=== PATIENT | male | born 2000 | race Caucasian/White ===

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

== ENCOUNTER → 2023-02-18 | Outpatient (CLI) | payer OTHER, SELFPAY ==
--- NOTE | 2023-02-18 09:03 | BI_ITS ---
MAMMOGRAPHY - BILATERAL DIAGNOSTIC REASON FOR EXAM: Male, 22 years old. Gynecomastia. PERTINENT HISTORY: Grandmother with breast cancer. TECHNIQUE: Digital bilateral breast deann (3D mammographic acquisition) in the CC and MLO projections. 2-D mediolateral oblique (MLO) and craniocaudad (CC) views of both breasts were obtained. CAD: Full Field Digital Mammography with Computer Added Detection was performed. COMPARISON: None. Baseline examination. FINDINGS: Breast Composition: There are scattered areas of fibroglandular density. There are no dominant masses or suspicious calcifications. No other significant abnormalities are identified. BI/DIAG MAMM W/CAD, BILAT IMPRESSION: Findings suggestive of gynecomastia. ASSESSMENT CATEGORY: BIRADS Category 2: Benign. A letter regarding these results will be sent to the patient by the facility within 30 days. Approximately 10% of breast cancers are not detected by mammography. A normal mammogram should not delay biopsy of a clinically suspicious abnormality. Electronically Signed: Desmond Mitchell MD at 12:58 EDT ,
== END | disposition home or self-care (01) ==
PROVIDERS: PCP Family Medicine; Referring Provider Surgery; Visit Provider Surgery
DX: N63.21 Unspecified lump in the left breast, upper outer quadrant (principal); N63.11 Unspecified lump in the right breast, upper outer quadrant; N64.89 Other specified disorders of breast; N62 Hypertrophy of breast
CPT/HCPCS: 77062; 77066; G0279

== ENCOUNTER → 2023-03-08 | Outpatient (CLI) | payer OTHER, SELFPAY ==
[2023-03-08 17:45] LABS: Absolute Lymphocyte Count 1.66 X10^3/uL (0.83-4.51); Absolute Neutrophil Count 1.4 X10^3/uL (2.0-7.7); Basophil# 0.04 X10^3/uL; Basophil% 1.1 % (0-1); Eosinophil# 0.23 X10^3/uL; Eosinophils% 6.3 % (0-5); Hematocrit 45.7 % (40-54); Hemoglobin 15.3 g/dL (13.0-16.5); Lymphocyte # 1.66 X10^3/ul (0.83-4.51); Lymphocyte % 45.2 % (19-41); Mean Corp Hgb Conc 33.5 g/dL (32-36); Mean Corpuscular Hgb 31.2 pg (27.0-32.0); Mean Corpuscular Volume 93.1 fL (80-94); Mean Platelet Vol. 9.8 fl (6.2-12.0); Monocyte% 8.2 % (0-10); NRBC Flagged by Analyzer 0 % (0-5); Neutrophil # 1.43 X10^3/uL (2.7-7.7); Neutrophil % 38.9 % (47-70); Platelet Count 293 K/mm3 (150-450); RBC Distribution Width CV 11.4 % (11.6-14.6); Red Blood Count 4.91 M/mm3 (4.6-6.2); White Blood Count 3.7 K/mm3 (4.4-11.0)
[2023-03-08 18:32] LABS: ALB/GLOB Ratio 1.1 RATIO (0.9-2.4); AST(SGOT) 15 U/L (15-37); Alanine Aminotransfer ALT/SGPT 23 U/L (16-61); Albumin, Serum 4.2 g/dL (3.2-5.0); Alkaline Phosphatase 64 U/L (45-117); Anion Gap 5 (5-15); BUN 19 mg/dL (7-18); BUN/Creat Ratio 17.1 RATIO (10-20); Calcium,Total 9.1 mg/dL (8.5-10.1); Chloride 106 mmol/L (98-107); Creatinine, Serum 1.11 mg/dL (0.70-1.30); EST Glomerular Filtration Rate 90 mL/min (>60); Est Glom Filt Rate - Afr Amer 108 mL/min (>60); Ferritin 72 ng/mL (26-388); Globulin 3.7 g/dL (2.2-4.2); Glucose 89 mg/dL (74-106); Iron 58 ug/dL (65-175); Iron Binding Capacity,Total 319 ug/dL (250-450); Potassium 3.7 mmol/L (3.5-5.1); Protein, Total 7.9 g/dL (6.4-8.2); Sodium Level 138 mmol/L (136-145); T4 Free Direct 0.94 ng/dL (0.76-1.46); Thyroid Stim Hormone (TSH) 3.63 uIU/mL (0.358-3.74)
[2023-03-08 18:34] LABS: Vitamin B12 507 pg/mL (211-911); Vitamin D,25 Hydroxy 40.4 ng/mL
[2023-03-08 18:34] LABS: hCG Titer Quant., Serum < 1 mIU/mL (0-1 male)
[2023-03-08 19:29] LABS: Estradiol 24.8 pg/mL; Follicle Stimulating Hormone 5.5 mIU/mL; Luteinizing Hormone 5.3 mIU/mL; Prolactin 13.8 ng/mL; T4 Free Direct 0.92 ng/dL (0.76-1.46); Thyroid Stim Hormone (TSH) 3.58 uIU/mL (0.358-3.74)
[2023-03-16 04:07] LABS: 17-Hydroxyprogesterone 71 ng/dL (27-199)
[2023-03-18 11:09] LABS: Adrenocorticotropic Hormone 13.9 pg/mL (7.2-63.3); Androstenedione 75 ng/dL (27-152); Sex Hormone-binding Globulin 27.9 nmol/L (16.5-55.9); Testosterone Free 10.9 pg/mL (9.3-26.5)
== END | disposition home or self-care (01) ==
LOC: MTLAB 15:02
PROVIDERS: Surgery; PCP Family Medicine; Referring Provider Family Medicine; Visit Provider Family Medicine
DX: R53.83 Other fatigue (principal); E61.1 Iron deficiency; N62 Hypertrophy of breast
CPT/HCPCS: 36415; 80053; 82024; 82157; 82306; 82607; 82627; 82670; 82728; 83001; 83002; 83498; 83540; 83550; 84146; 84270; 84402; 84439; 84443; 84702; 85025; 82626

== ENCOUNTER → 2023-06-07 | Outpatient (CLI) | payer OTHER, SELFPAY ==
[2023-06-22 18:07] LABS: Testosterone, % Free 2.82 % (1.50-4.20); Testosterone, Total 663 ng/dL (264-916)
== END | disposition home or self-care (01) ==
LOC: MFPLAB 11:32
PROVIDERS: PCP Family Medicine; Visit Provider Family Medicine
DX: R68.82 Decreased libido (principal)
CPT/HCPCS: 36415; 84402; 84403

== ENCOUNTER → 2023-06-14 | Outpatient (CLI) | payer OTHER, SELFPAY | END | disposition home or self-care (01) | LOC: SL 08:48 | PROVIDERS: PCP Family Medicine; Referring Provider Nurse Practitioner Acute Care; Visit Provider Nurse Practitioner Acute Care | DX: G47.10 Hypersomnia, unspecified (principal) | CPT/HCPCS: 95806 ==

== ENCOUNTER → 2023-07-12 | Outpatient (CLI) | payer OTHER, SELFPAY ==
--- OUTSIDE RECORDS SUMMARY | 2023-07-12 20:24 | XMS RPT_ITS | CCD ---
Author Name Unknown Address [address] [place] [address] Organization [facility] Care Team Providers Care Registered Representative Name Role Phone Dwight Rodriguez MD Primary Care Provider DAVID LANDEROS Primary Care Unavailable DAVID LANDEROS Attending Unavailable DWIGHT RODRIGUEZ Primary Care Unavailable DAVID LANDEROS Referring Unavailable DWIGHT RODRIGUEZ Primary Care Unavailable DAVID LANDEROS Attending Unavailable Allergies Allergy Classification Reported Allergen(s) Allergy Type Date of Onset Reaction(s) Facility (2 sources) Seasonal allergy; Translations: [SEASONAL ALLERGIES] Propensity to adverse reactions 02-28-2010 [facility] Medications Completed/Discontinued Medications Medication Drug Class(es) Dates Sig (Normalized) Sig (Original) ASHWAGANDHA ROOT EXTRACT,BULK, MISC (1 source) ASHWAGANDHA ROOT EXTRACT,BULK, MISC 1 Dose once daily. 0 Active Problems Active Problems Problem Classification Problem Date Documented Date Episodic/Chronic Esophageal disorders (1 source) Gastroesophageal reflux disease; Translations: [Gastro-esophageal reflux disease without esophagitis] Onset: 11-21-2012 11-21-2012 Chronic Immunizations and screening for infectious disease (3 sources) Encounter for immunization; Translations: [Encounter for screening for other viral diseases] Onset: 11-16-2022 Episodic Past or Other Problems Problem Classification Problem Date Documented Da te Episodic/Chronic Abdominal pain (1 source) Epigastric pain; Translations: [Epigastric pain] Onset: 07-07-2012 07-07-2012 Episodic Other gastrointestinal disorders (1 source) Diarrhea; Translations: [Diarrhea, unspecified] Onset: 12-07-2003 12-07-2003 Episodic Other injuries and conditions due to external causes (1 source) Excoriation of skin; Translations: [Other injury of unspecified body region, initial encounter] Onset: 09-02-2013 09-02-2013 Episodic Other skin disorders (1 source) Keratosis pilaris; Translations: [Other specified epidermal thickening] Onset: 02-17-2012 02-17-2012 Episodic Other skin disorders (1 source) Comedonal acne; Translations: [Acne vulgaris] Onset: 02-17-2012 05-19-2012 Episodic Other skin disorders (1 source) Milia; Translations: [Epidermal cyst] Onset: 09-02-2013 09-02-2013 Episodic Other skin disorders (1 source) Acne; Translations: [Other acne] Onset: 09-02-2013 09-02-2013 Episodic Results Test Name Value Interpretation Reference Range Facil ity Encounters Encounter Date Encounter Type Care Provider Facility Start: 11-30-2022 End: 12-01-2022 ambulatory DAVID LANDEROS Facility:[facility] Start: 11-16-2022 End: 11-17-2022 ambulatory DWIGHT RODRIGUEZ Facility:[facility] Start: 11-16-2022 Encounter for routin e child health examination without abnormal findings DAVID LANDEROS [facility] Start: 11-01-2021 ambulatory Dwight gomes MD Work Phone: [facility] Procedures Date Procedure Procedure Detail Performing Clinician Start: 07-04-2021 Adult depression screening assessment Dwight Rodriguez MD Work Phone: Plan of Treatment Date Care Activity Detail Author Start: 03-14-2026 Urine microalbumin profile DTA P,TDAP,TD (7 - Td or Tdap) [facility] Start: 07-04-2022 Adult depression scr eening assessment DEPRESSION SCREENING [facility] Start: 02-22-2022 Influenza vaccination INFLUENZA (Sea son Ended) [facility] Start: 2020 HEPATITIS C SCREENING HEPATITIS C [facility] Start: 2020 HIV SCREENING HIV SCREENING [facility] Start: 2018 MENINGOCOCCAL CONJUG ATE (2 - 2-dose series) MENINGOCOCCAL CONJUGATE (2 - 2-dose series) [facility] Start: 2016 PEDS TO ADULT TRANSI TION ANNUAL ASSESSMENT PEDS TO ADULT TRANSITION ANNUAL ASSESSMENT [facility] Start: 2014 PEDS TO ADULT TRANSI TION INITIAL DISCUSSION PEDS TO ADULT TRANSITION INITIAL DISCUSSION [facility] Start: 2013 HPV VACCINE (1 - Mal e 2-dose series) HPV VACCINE (1 - Male 2-dose series) [facility] Start: 2012 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 (1 of 2 - Risk Bexsero 2-dose series) MENINGOCOCCAL B: Consider based on risk (1 of 2 - Risk Bexsero 2-dose series) [facility] Start: 11-24-2007 COVID-19 VACCINE (#1) COVID-19 VACCI NE (#1) [facility] Immunizations Immunization Date Immunization Notes Care Provider Fa cility 03-14-2016 meningococcal polysaccharide (groups A, C, Y and W-135) diphtheria toxoid conjugate vaccine (MCV4P) Dwight Rodriguez MD Work Phone: [facility] 03-14-2016 tetanus toxoid, redu layla diphtheria toxoid, and acellular pertussis vaccine, adsorbed Dwight Rodriguez MD Work Phone: [facility] 03-14-2009 Diphtheria, tetanus toxoids and acellular pertussis vaccine, and poliovirus vaccine, inactivated Dwight Rodriguez MD Work Phone: [facility] Work Phone: 03-14-2009 hepatitis A vaccine, unspecified formulation Dwight Rodriguez MD Work Phone: [facility] Work Phone: 03-14-2009 measles, mumps and rubella virus vaccine Dwight Rodriguez MD Work Phone: [facility] Work Phone: 03-14-2009 varicella virus vaccine Eran Rodriguez MD Work Phone: [facility] Work Phone: 01-17-2007 hepatitis A vaccine, unspecified formulation Dwight Rodriguez MD Work Phone: [facility] Work Phone: 05-26-2004 diphtheria, tetanus toxoids and acellular pertussis vaccine Dwight Rodriguez MD Work Phone: [facility] Work Phone: 05-26-2004 haemophilus influenz ae type b vaccine, HbOC conjugate Dwight Rodriguez MD Work Phone: [facility] Work Phone: 05-15-2004 influenza virus vacc ine, unspecified formulation Dwight Rodriguez MD Work Phone: [facility] Work Phone: 03-24-2004 influenza virus vacc ine, unspecified formulation Dwight Rodriguez MD Work Phone: [facility] Work Phone: 02-24-2004 hepatitis B vaccine, pediatric or pediatric/adolescent dosage Dwight Rodriguez MD Work Phone: [facility] Work Phone: 02-24-2004 measles, mumps and rubella virus vaccine Dwight Rodriguez MD Work Phone: [facility] Work Phone: 02-24-2004 pneumococcal polysaccharide vaccine, 23 valent Dwight Rodriguez MD Work Phone: [facility] Work Phone: 02-24-2004 varicella virus vaccine Eran Rodriguez MD Work Phone: [facility] Work Phone: 06-03-2003 diphtheria, tetanus toxoids and acellular pertussis vaccine Dwight Rodriguez MD Work Phone: [facility] Work Phone: 06-03-2003 haemophilus influenz ae type b vaccine, HbOC conjugate Dwight Rodriguez MD Work Phone: [facility] Work Phone: 06-03-2003 pneumococcal polysaccharide vaccine, 23 valent Dwight Rodriguez MD Work Phone: [facility] Work Phone: 06-03-2003 poliovirus vaccine, inactivated Dwight Rodriguez MD Work Phone: [facility] Work Phone: 04-13-2003 diphtheria, tetanus toxoids and acellular pertussis vaccine Dwight Rodriguez MD Work Phone: [facility] Work Phone: 04-13-2003 haemophilus influenz ae type b vaccine, HbOC conjugate Dwight Rodriguez MD Work Phone: [facility] Work Phone: 04-13-2003 pneumococcal polysaccharide vaccine, 23 valent Dwight Rodriguez MD Work Phone: [facility] Work Phone: 04-13-2003 poliovirus vaccine, inactivated Dwight Rodriguez MD Work Phone: [facility] Work Phone: 02-09-2003 diphtheria, tetanus toxoids and acellular pertussis vaccine Dwight Rodriguez MD Work Phone: [facility] Work Phone: 02-09-2003 haemophilus influenz ae type b vaccine, HbOC conjugate Dwight Rodriguez MD Work Phone: [facility] Work Phone: 02-09-2003 pneumococcal polysaccharide vaccine, 23 valent Dwight Rodriguez MD Work Phone: [facility] Work Phone: 02-09-2003 poliovirus vaccine, inactivated Dwight Rodriguez MD Work Phone: [facility] Work Phone: 2002 hepatitis B vaccine, pediatric or pediatric/adolescent dosage Dwight Rodriguez MD Work Phone: [facility] Work Phone: 2002 hepatitis B vaccine, pediatric or pediatric/adolescent dosage Dwight Rodriguez MD Work Phone: [facility] Work Phone: Payers Date Payer Category Payer Private Health Insurance [id number] 2018 Unknown [employer] PPO [id number] 2018-Present [phone] [address] [place] [address] PPO 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 Author Type: Physician Type: Progress Notes Filed: 11/17/2022 8:17 AM Note Text: WELL VISIT PEDIATRIC 18+YRS OLD Khris is a 21 year old who presents today for well exam. SUBJECTIVE CONCERNS: no concerns HISTORY ACTIVE PROBLEM LIST Milial Cyst - 09/02/2013 Other Acne - 09/02/2013 Excoriation - 09/02/2013 Gerd (Gastroesophageal Reflux Disease) - 11/21/2012 Pain, Abdominal, Epigastric - 07/07/2012 Keratosis Pilaris - 02/17/2012 Comedonal Acne - 02/17/2012 Diarrhea - 12/07/2003 PAST MEDICAL HISTORY Diagnosis Date Comedonal acne 02/17/2012 DIARRHEA NOS 12/07/2003 Keratosis pilaris 02/17/2012 PAST SURGICAL HISTORY Procedure Laterality Date PAST SURGICAL HISTORY OF 2002 circumcision ALLERGIES Allergen Reactions Seasonal Allergies Medications: ASHWAGANDHA ROOT EXTRACT,BULK, MISC 1 Dose once daily. (Patient not taking: Reported on 11/02/2021 ) creatine, bulk, 100 % powd 1 Dose two times a week. (Patient not taking: Reported on 11/16/2022) CLARAVIS 40 mg capsule TAKE ONE PILL ONCE DAILY WITH FATTY FOODS *PHONE BUSY MD/PT NEEDS TO DO REMS* (Patient not taking: Reported on 11/16/2022) mupirocin (BACTROBAN) 2 % ointment Apply 1 application to affected area three times daily. Location: to ear (Patient not taking: Reported on 04/30/2018 ) Benzoyl Peroxide 10 % external wash Apply 1 application to affected area twice daily. (Patient not taking: Reported on 04/30/2018 ) FAMILY HISTORY Problem Relation Age of Onset Hypertension Maternal Grandmother Hypertension Unknown [place] at 81 years of age; - mggf other (lung cancer [Other]) Maternal Grandmother other (familial progressive paralysis [Other]) Paternal Grandmother Social History Social History Narrative Not on file Smoking Exposure: Do you spend a significant amount of time with anyone who smokes? No School: Presently in [employer]. No academic or school related concerns No behavioral concerns Any concerns regarding peer interactions? No Physical Activity: more than 1 hour of physical activity per day Screen Time totaling more than 2 hours of screen time per day. Safety: Reviewed seat belts, smoke detectors, and driving Diet: -Diet is well balanced and appropriate for age -Fruits and veggies are eaten with most meals -Drinks whole milk -Drinks water daily -Regularly eats meals with family Elimination: no concerns, normal size and consistency Dental: dental care current Sleep: -no sleep concerns Vision: No vision concerns Hearing: No hearing concerns Growth: No growth concerns Substance use: none Sexual History: Attraction: female Sexually Active: Yes Number of lifetime partners: 10 Contraception: partner uses hormonal contraception History of STI: No Hx of STI/HIV testing? Yes, 11/02/21 Any new partners since last testing? Yes Penile discharge: No Body image: satisfactory Screening tools reviewed and discussed with patient/[id number] and Social Determinants of Health. Please see Patient Entered Data. SDOH: Food Insecurity: No Food Insecurity Worried About Running Out of Food in the Last Year: Never true Ran Out of Food in the Last Year: Never true Financial Resource Strain: Low Risk Difficulty of Paying Living Expenses: Not hard at all Transportation Needs: No Transportation Needs Lack of Transportation (Medical): No Lack of Transportation (Non-Medical): No Housing Stability: Low Risk Unable to Pay for Housing in the Last Year: No Number of Places Lived in the Last Year: 1 Unstable Housing in the Last Year: No Discussed SDOH results with patient/family. SDOH needs identified: no concerns identifiedsults with patient/family. SDOH needs identified: no concerns identified OBJECTIVE Physical Exam: BP 118/66 Pulse 74 Temp 37.1 ?C (98.7 ?F) (Temporal Artery) Resp 18 Ht 171.6 cm (5' 7.56 ) Wt 72.1 kg (159 lb) BMI 24.49 kg/m? Blood pressure percentiles are not available for patients who are 18 years or older. 67 %ile (Z= 0.44) based on CDC (Boys, 2-20 Years) BMI-for-age based on BMI available as of 11/16/2022. Last BMI: Wt: 74.8 kg (165 lb) (69 %, Z= 0.48)* BMI: 39.02 kg/(m2) Last 4 Encounter Wt Readings: Date: Wt: 11/16/2022 72.1 kg (159 lb) (55 %, Z= 0.13)* 11/02/2021 74.8 kg (165 lb) (69 %, Z= 0.48)* 07/04/2021 75.4 kg (166 lb 2 oz) (72 %, Z= 0.57)* 07/18/2020 74.8 kg (165 lb) (76 %, Z= 0.69)* Last 4 Encounter Ht Readings: Date: Ht: 11/16/2022 171.6 cm (5' 7.56 ) (23 %, Z= -0.73)* 11/21/2012 138.5 cm (4' 6.53 ) (49 %, Z= -0.01)* 07/31/2012 137 cm (4' 5.94 ) (50 %, Z= -0.01)* 02/28/2010 124.5 cm (4' 1 ) (57 %, Z= 0.19)* General: Well developed, No acute distress Head: normocephalic Eyes: conjunctivae/corneas clear Ears: normal external ear and canal, tympanic membranes with normal landmarks Nose: no erythema or rhinorrhea Oropharynx: mois (more content not included)... [facility] Note 11-01-2021 Telephone Encounter - Valeri Champion RN - 11/01/2021 11:28 AM EDT Note Date & Type Note Facility 11-01-2021 Miscellaneous Notes Reason for Disposition Urination is difficult to start (i.e., hesitancy) or straining Answer Assessment - Initial Assessment Questions 1. SYMPTOM: What's the main symptom you're concerned about? (e.g., frequency, incontinence) Hard to urinate, straining/hesitancy 2. ONSET: When did the Difficulty with urinate start? Couple months 3. PAIN: Is there any pain? If Yes, ask: How bad is it? (Scale: 1-10; mild, moderate, severe) no 4. CAUSE: What do you think is causing the symptoms? ? Enlarge prostate 5. OTHER SYMPTOMS: Do you have any other symptoms? (e.g., fever, flank pain, blood in urine, pain with urination) No other symptoms 6. : Is there any chance you are ? When was your last menstrual period? n/a Protocols used: URINARY [id number] documented in this encounter [facility] History of Past illness Narrative 07-07-2012 Note Date & Type Note Facility documented as of this encounter (statuses as of 11/01/2021) [facility] Summary Purpose Family History No Family History Records Found Advance Directives No Advanced Directives Records Found Additional Source Comments Source Comments (unrecognize d section and content) In the event this informatio n is protected by the Federal Confidentiality of Alcohol and Drug Abuse Patient Records regulations: The Federal rules restrict any use of the information to criminally investigate or prosecute any alcohol or drug abuse patient.[facility] Reason for Visit (unrecogniz ed section and content) Care Teams (unrecognized sec tion and content) (unrecognized sect ion and content) No Status Records Found INFORMATION SOURCE (unrecogn ized section and content) FOR RECORDS PERTAINING TO PATIENTS WHO ARE OR HAVE BEEN ENROLLED IN A CHEMICAL DEPENDENCY/SUBSTANCEABUSE PROGRAM, SOME INFORMATION MAY BE OMITTED. This clinical summary was aggregated from multiple sources. Caution should be exercised in using it in the provision of clinical care. This summary normalizes information from multiple sources, and as a consequence, information in this document may materially change the coding, format and clinical context of patient data. In addition, data may be omitted in some cases. CLINICAL DECISIONS SHOULD BE BASED ON THE PRIMARY CLINICAL RECORDS. [employer] provides no warranty or guarantee of the accuracy or completeness of information in this document.
== END | disposition home or self-care (01) ==
PROVIDERS: PCP Family Medicine; Referring Provider Nurse Practitioner Acute Care; Visit Provider Nurse Practitioner Acute Care
DX: G47.10 Hypersomnia, unspecified (principal)
CPT/HCPCS: 95810

== ENCOUNTER → 2023-08-06 | Outpatient (CLI) | payer OTHER, SELFPAY ==
[2023-08-06 10:49] LABS: Bacteria 0 SEEN /hpf (None Seen); Mucous, Urine 0 SEEN /hpf (<or=2+); Red Blood Cells-Urine 0 SEEN /hpf (0-5); Squamous Epithelial Cells - UA 0 SEEN /hpf (0-5); White Blood Cells 0 SEEN /hpf (0-5)
[2023-08-06 12:23] LABS: Color, Urine Straw (Yellow); Glucose, Dipstick Normal (Normal); Ketone-Dipstick Negative (Negative); Leukocyte Esterase-Dipstick Negative /ul (Negative); Nitrite-Dipstick Negative (Negative); Occult Blood-Urine Negative /ul (Negative); Protein-Dipstick Negative (Negative); Specific Gravity, Urine 1.015 (1.002-1.030); Urine Bilirubin Dipstick Negative (Negative); Urine Clarity Clear (Clear); Urine Urobilinogen Normal (Normal)
[2023-08-06 12:40] LABS: Absolute Neutrophil Count 1.3 X10^3/uL (2.0-7.7); Basophil# 0.04 X10^3/uL; Basophil% 1.3 % (0-1); Eosinophil# 0.12 X10^3/uL; Eosinophils% 3.9 % (0-5); Hemoglobin 16.2 g/dL (13.0-16.5); Lymphocyte % 42.5 % (19-41); Mean Corp Hgb Conc 33.1 g/dL (32-36); Mean Corpuscular Hgb 30.3 pg (27.0-32.0); Mean Corpuscular Volume 91.6 fL (80-94); Mean Platelet Vol. 10.1 fl (6.2-12.0); Monocyte# 0.29 X10^3/uL; Monocyte% 9.5 % (0-10); NRBC Flagged by Analyzer 0 % (0-5); Neutrophil # 1.31 X10^3/uL (2.7-7.7); Neutrophil % 42.8 % (47-70); Platelet Count 266 K/mm3 (150-450); RBC Distribution Width CV 11.2 % (11.6-14.6); Red Blood Count 5.35 M/mm3 (4.6-6.2); White Blood Count 3.1 K/mm3 (4.4-11.0)
[2023-08-06 12:48] LABS: ALB/GLOB Ratio 1.1 RATIO (0.9-2.4); AST(SGOT) 25 U/L (15-37); Alanine Aminotransfer ALT/SGPT 22 U/L (16-61); Albumin, Serum 4.2 g/dL (3.2-5.0); Alkaline Phosphatase 66 U/L (45-117); Anion Gap 5 (5-15); BUN 15 mg/dL (7-18); BUN/Creat Ratio 14.2 RATIO (10-20); Calcium,Total 9.6 mg/dL (8.5-10.1); Chloride 103 mmol/L (98-107); Creatinine, Serum 1.06 mg/dL (0.70-1.30); EST Glomerular Filtration Rate 94 mL/min (>60); Est Glom Filt Rate - Afr Amer 114 mL/min (>60); Ferritin 68 ng/mL (26-388); Globulin 3.8 g/dL (2.2-4.2); Glucose 83 mg/dL (74-106); Iron 201 ug/dL (65-175); Iron Binding Capacity,Total 391 ug/dL (250-450); Potassium 3.9 mmol/L (3.5-5.1); Sodium Level 138 mmol/L (136-145)
== END | disposition home or self-care (01) ==
LOC: MFPLAB 10:48
PROVIDERS: PCP Family Medicine; Visit Provider Family Medicine
DX: E61.1 Iron deficiency (principal); R35.89 Other polyuria
CPT/HCPCS: 36415; 80053; 81001; 82728; 83540; 83550; 85025

== ENCOUNTER → 2024-03-25 | Outpatient (CLI) | payer OTHER, SELFPAY ==
[2024-03-25 18:20] LABS: ALB/GLOB Ratio 1.2 RATIO (0.9-2.4); AST(SGOT) 16 U/L (15-37); Alanine Aminotransfer ALT/SGPT 31 U/L (16-61); Albumin, Serum 4.2 g/dL (3.2-5.0); Alkaline Phosphatase 68 U/L (45-117); Anion Gap 5 (5-15); BUN 19 mg/dL (7-18); BUN/Creat Ratio 17.3 RATIO (10-20); Calcium,Total 9.4 mg/dL (8.5-10.1); Chloride 102 mmol/L (98-107); Cholesterol 180 mg/dL (200); EST Glomerular Filtration Rate 90 mL/min (>60); Est Glom Filt Rate - Afr Amer 108 mL/min (>60); Globulin 3.6 g/dL (2.2-4.2); Glucose 84 mg/dL (74-106); High Density Lipoprotein 85 mg/dL; Protein, Total 7.8 g/dL (6.4-8.2); Sodium Level 135 mmol/L (136-145); Triglycerides 47 mg/dL; Very Low Density Lipoprotein 9 mg/dL (5-40)
== END | disposition home or self-care (01) ==
LOC: MTLAB 14:11
PROVIDERS: PCP Family Medicine; Referring Provider Nurse Practitioner Family; Visit Provider Nurse Practitioner Family
DX: Z13.220 Encounter for screening for lipoid disorders (principal); R53.83 Other fatigue; Z13.1 Encounter for screening for diabetes mellitus
CPT/HCPCS: 36415; 80053; 80061; 84443

== ENCOUNTER → 2024-06-18 | Outpatient (CLI) | payer OTHER, SELFPAY ==
[2024-06-18 17:38] LABS: Absolute Lymphocyte Count 1.33 X10^3/uL (0.83-4.51); Basophil# 0.04 X10^3/uL; Basophil% 1.1 % (0-1); Eosinophils% 2.6 % (0-5); Hematocrit 47.5 % (40-54); Hemoglobin 16.4 g/dL (13.0-16.5); Lymphocyte # 1.33 X10^3/ul (0.83-4.51); Lymphocyte % 35.1 % (19-41); Mean Corp Hgb Conc 34.5 g/dL (32-36); Mean Corpuscular Hgb 30.9 pg (27.0-32.0); Mean Corpuscular Volume 89.6 fL (80-94); Mean Platelet Vol. 9.2 fl (6.2-12.0); Monocyte# 0.32 X10^3/uL; Monocyte% 8.4 % (0-10); NRBC Flagged by Analyzer 0 % (0-5); Neutrophil # 1.99 X10^3/uL (2.7-7.7); Neutrophil % 52.5 % (47-70); Platelet Count 301 K/mm3 (150-450); RBC Distribution Width CV 11.1 % (11.6-14.6); RBC Distribution Width SD 35.9 fl (35.1-43.9); White Blood Count 3.8 K/mm3 (4.4-11.0)
[2024-06-18 18:08] LABS: Vitamin B12 > 2000 pg/mL (211-911); Vitamin D,25 Hydroxy 27.2 ng/mL
[2024-06-18 18:27] LABS: ALB/GLOB Ratio 1.1 RATIO (0.9-2.4); AST(SGOT) 9 U/L (15-37); Alanine Aminotransfer ALT/SGPT 18 U/L (16-61); Albumin, Serum 4.3 g/dL (3.2-5.0); Alkaline Phosphatase 71 U/L (45-117); Anion Gap 6 (5-15); BUN 14 mg/dL (7-18); BUN/Creat Ratio 11.1 RATIO (10-20); Calcium,Total 9.1 mg/dL (8.5-10.1); Chloride 101 mmol/L (98-107); Creatinine, Serum 1.26 mg/dL (0.70-1.30); EST Glomerular Filtration Rate 76 mL/min (>60); Est Glom Filt Rate - Afr Amer 92 mL/min (>60); Globulin 3.9 g/dL (2.2-4.2); Glucose 86 mg/dL (74-106); Potassium 3.8 mmol/L (3.5-5.1); Protein, Total 8.2 g/dL (6.4-8.2); Sodium Level 137 mmol/L (136-145); T4 Free Direct 1.11 ng/dL (0.76-1.46)
== END | disposition home or self-care (01) ==
PROVIDERS: PCP Family Medicine; Referring Provider Family Medicine; Visit Provider Family Medicine
DX: R53.83 Other fatigue (principal)
CPT/HCPCS: 80053; 82306; 82607; 84439; 84443; 85025

== ENCOUNTER → 2024-07-20 | Outpatient (CLI) | payer BC, SELFPAY ==
--- NOTE | 2024-07-20 16:31 | MRI_ITS ---
INDICATION: DIPLOPIA EXAMINATION: MRI - MR Brain WO/W Contrast TECHNIQUE: MRI examination of brain obtained with standard protocol including multiplanar multiecho imaging. MRI examination obtained with standard protocol including multiplanar multiecho pre and postcontrast imaging. Additional dedicated imaging of the orbits obtained. Pre and Postcontrast imaging obtained. IV Contrast Dosage and Agent: 15 mL clariscan COMPARISON: None. FINDINGS: HEMISPHERES, CEREBELLUM AND BRAINSTEM: 1. The cerebral parenchyma, ventricular system, subarachnoid spaces have normal configuration and density. There is a normal gyral pattern. There is normal cai/white differentiation. No midline shift.. 2. The hemispheric white matter has normal appearance. No areas of fluid restriction or acute ischemic change. No hemosiderin deposition or hemorrhage. 3. No intraparenchymal mass, hemorrhage, or acute territorial infarct. 4. The cerebellum, brainstem, basilar and suprasellar cisterns have normal appearance. No Chiari malformation. 5. No areas of abnormal contrast enhancement. PITUITARY: Infundibulum and pituitary have normal configuration. Midline structures appear normal. CSF SPACES: Appropriate for age. No hydrocephalus. Basal cisterns are patent. VESSELS: 1. There are normal flow voids noted in the great vessels at the skull base ORBITS : 1. Both globes, extraocular muscles, optic nerves and retrobulbar fat appear unremarkable. 2. No areas of abnormal contrast enhancement. 3. Normal appearance of the optic nerves, optic chiasm and visualized optic tracts. 4. Ocular lenses have normal appearance. There is conjugate gaze. PARANASAL SINUSES 1. Paranasal sinuses are clear. 2. There is a significant RIGHT mastoid air cell disease. BONY ELEMENTS: Bony elements of the cranial vault, facial skeleton and skull base have normal appearance. SCALP AND SOFT TISSUES: Normal appearance of the soft tissues of the scalp and the visualized face OTHER: None MRI/Brain W/WO Contrast IMPRESSION: 1. No intracranial mass, hemorrhage, or acute territorial infarct. No areas of abnormal contrast enhancement. 2. Normal MRI appearance of the orbits including the globes, retrobulbar soft tissue planes, optic nerves, optic tract and optic chiasm. Conjugate gaze is noted. 3. No radiographically significant sinus disease. 4. RIGHT mastoid air cell disease. Electronically Signed: Lester Landry MD at 0:10 EST ,
== END | disposition home or self-care (01) ==
PROVIDERS: PCP Family Medicine; Referring Provider Family Medicine; Visit Provider Family Medicine
DX: H53.2 Diplopia (principal)
CPT/HCPCS: 70553; A9575

== ENCOUNTER → 2024-07-23 | Outpatient (CLI) | payer BC, SELFPAY ==
[2024-07-23 11:18] LABS: Ferritin 72 ng/mL (26-388); Iron 89 ug/dL (65-175); Iron Binding Capacity,Total 349 ug/dL (250-450); PERCENT IRON SATURATION 25.5 % (15.0-55.0)
[2024-07-24 05:06] LABS: Transferrin 248 mg/dL (177-329)
== END | disposition home or self-care (01) ==
LOC: MFPLAB 09:23
PROVIDERS: PCP Family Medicine; Visit Provider Family Medicine
DX: E83.19 Other disorders of iron metabolism (principal)
CPT/HCPCS: 36415; 82728; 83540; 83550; 84466

== ENCOUNTER → 2024-09-09 | Outpatient (CLI) | payer BC, SELFPAY | END | disposition home or self-care (01) | PROVIDERS: PCP Family Medicine; Referring Provider Psychiatry & Neurology Neurology; Visit Provider Psychiatry & Neurology Neurology | DX: G47.10 Hypersomnia, unspecified (principal) | CPT/HCPCS: 95810 ==

== ENCOUNTER → 2024-09-10 | Outpatient (CLI) | payer BC, SELFPAY ==
[2024-09-10 11:49] LABS: Amphetamine Urine NEGATIVE (<1000 ng/mL); Barbiturate Urine NEGATIVE (< 200 ng/mL); Benzodiazepine Urine NEGATIVE (< 200 ng/mL); Buprenorphine Urine NEGATIVE (< 200 ng/mL); Cocaine Urine NEGATIVE (< 300 ng/mL); Fentanyl, Urine NEGATIVE; Methadone Urine NEGATIVE (< 300 ng/mL); Opiates Urine NEGATIVE (< 300 ng/mL); Oxycodone, Urine NEGATIVE (< 100 ng/mL); PCP Urine NEGATIVE (< 25 ng/mL); THC Urine NEGATIVE (< 50 ng/mL)
== END | disposition home or self-care (01) ==
LOC: SL 06:27
PROVIDERS: PCP Family Medicine; Referring Provider Psychiatry & Neurology Neurology; Visit Provider Psychiatry & Neurology Neurology
DX: G47.10 Hypersomnia, unspecified (principal)
CPT/HCPCS: 80307; 95805

== ENCOUNTER → 2024-12-29 | Outpatient (CLI) | payer BC, SELFPAY ==
--- NOTE | 2024-12-29 15:32 | MRI_ITS ---
PROCEDURE: MRA NECK WITHOUT CONTRAST 12/29/2024 REASON FOR EXAM: DISSECTION OF VERTEBRAL ARTERY COMPARISON: none TECHNIQUE: MRA NECK WITHOUT CONTRAST FINDINGS: Patent MRA signal of the examined common carotid arteries. No tight stenosis. Paten MRA signal of carotid bulbs. Patent MRA signal of the cervical segments of the internal carotid arteries. No tight stenosis. Patent MRA signal of the vertebral arteries. No tight stenosis. None of the examined arteries show aneurysmal dilatation, intimal dissection or obvious AVM. MRI/MRA Neck without Contrast IMPRESSION: Patent extracranial carotid and vertebral arteries. No stenosis, aneurysmal dil atation, intimal dissection or obvious AVM. Reading [facility]
--- NOTE | 2024-12-29 15:35 | MRI_ITS ---
PROCEDURE: MRA HEAD ONLY WITHOUT CONTRAST 12/29/2024 REASON FOR EXAM: DISSECTION OF VERTEBRAL ARTERY COMPARISON: none TECHNIQUE: MRA HEAD ONLY WITHOUT CONTRAST Multiplanar multisequential imaging was performed without IV contrast administration. FINDINGS: Patent MRA flow signals of the petrous, cavernous and supraclinoid segments of the internal carotid arteries showing no tight stenotic lesions or aneurysmal dilatation. Patent MRA signal of the anterior and middle cerebral arteries (SARA's) (A1 to A4), and (M1 to M4). They appear patent on the examined included MRA images of the neck. Patent MRA signal of the vertebral and basilar arteries. No stenotic lesions or aneurysmal dilatation. Patent posterior cerebral arteries (P1 to P5). No stenotic lesions or aneurysmal dilatation. None of the mentioned arteries shows stenotic lesions, occlusion, aneurysmal dilatation or arteriovenous malformation. MRI/MRA Head ONLY without Contrast IMPRESSION: Unremarkable MRA of the intracranial vessels constituting ([place]). N o stenotic lesions, occlusion, aneurysmal dilatation or arteriovenous malformation. Reading Location[facility]
== END | disposition home or self-care (01) ==
PROVIDERS: PCP Family Medicine; Referring Provider Physician Assistant; Visit Provider Physician Assistant
DX: I77.74 Dissection of vertebral artery (principal)
CPT/HCPCS: 70544; 70547